=== PATIENT | female | born 1960 | race Caucasian/White ===

== ENCOUNTER 2023-10-18 09:14 | Emergency (ER) | payer OTHER, SELFPAY ==
[2023-10-18 09:18] VITALS: BP 157/90; PULSE 60; TEMP 36.8; O2SAT 96; BMI 29.3
--- NOTE | 2023-10-18 09:36 | XR_ITS ---
The [address] [address] Patient Name: SHARON COTTON MRN: [id number] date: 1960 Sex: F Assigned Patient Location: ER Current Patient Location: ER Accession/Order Number: [id number] Exam Date: 10/18/2023 09:30 Report Date: 10/18/2023 10:03 At the request of: RACHEL HWANG Procedure: XR foot RT min 3V PROCEDURE: XR foot RT min 3V HISTORY: trauma ; pain and bruising of lateral foot/5th toe; horse stepped on foot COMPARISON: None. FINDINGS: BONES:Comminuted fracture involving the head of the 5th middle phalanx and base of the 5th distal phalanx, with displaced fragments. Prior osteotomy and repair of first metatarsal with wire/pin remaining. Prosthetic replacement of proximal articular surface of first proximal phalanx. SOFT TISSUES:No visible soft tissue swelling. EFFUSION:None visible. OTHER: Negative. XR/XR foot RT min 3V IMPRESSION: 1. Comminuted, displaced fracture involving the contiguous sides of the 5th distal interphalangeal joint. 2. Prior surgical repair of first metatarsal and the metatarsophalangeal joint without evidence of hardware failure. Electronically authenticated by: DONTAE TANG Date: 10/18/2023 10:03
--- NOTE | 2023-10-18 10:16 | ED.LOWEXI1 ---
HPI HPI - Extremity Injury (Lower) General Chief Complaint: Extremity Injury, Lower Stated Complaint: LOWER EXTREMITY PAIN Time Seen by Provider: 10/18/23 09:17 Mode of arrival: walk-in Limitations: no limitations History of Present Illness HPI Narrative: Patient presents to ED complaining of right foot pain. She said last night Her foot accidentally got stepped on by her horse. She has bruising swelling and pain at the fourth and fifth metatarsal area. No other injury. She has had surgery on that foot in the past. No other complaints at this time Related Data Home Medications ?Medication ?Instructions ?Recorded ?Confirmed atorvastatin 20 mg tablet 20 mg PO DAILY 10/18/23 10/18/23 empagliflozin 25 mg tablet 25 mg PO DAILY 10/18/23 10/18/23 (Jardiance) empagliflozin 25 mg tablet 25 mg PO DAILY 10/18/23 10/18/23 (Jardiance) fluticasone propionate 50 2 spray intranasal DAILY PRN 10/18/23 10/18/23 mcg/actuation nasal allergy symptoms spray,suspension meloxicam 15 mg tablet 15 mg PO DAILY 10/18/23 10/18/23 mometasone-formoterol HFA 200 2 puff inhalation BID 10/18/23 10/18/23 mcg-5 mcg/actuation aerosol inhaler (Dulera) nystatin-triamcinolone 100,000 1 applic topical DAILY 10/18/23 10/18/23 unit/gram-0.1 % topical ointment olmesartan 20 mg tablet 20 mg PO DAILY 10/18/23 10/18/23 pregabalin 75 mg capsule 75 mg PO Q8H 10/18/23 10/18/23 tizanidine 2 mg capsule 2 mg PO BID PRN muscle spasticity 10/18/23 10/18/23 Allergies Allergy/AdvReac Type Severity Reaction Status Date / Time No Known Drug Allergies Allergy Verified 10/18/23 09:21 Opioid HPI Opioid Management Most Recent Pain and Opioid Data: Last Pain Scale 2 10/18/23 09:30 Review of Systems ROS Status of ROS 10 or more systems reviewed and unremarkable except as noted in history and below Exam Narrative Exam Narrative: General: alert, no acute distress Cardiovascular: regular rate and rhythm, normal peripheral perfusion. Respiratory: Lungs CTA, respirations non labored. Extremities: Ecchymosis swelling and tenderness at the fourth and fifth metatarsal area on the right. Normal pulses sensation and motor. Neurological: oriented x 4, LOC appropriate for age. Constitutional Vital Signs, click to edit/add: Last Vital Signs Temp 98.2 F 10/18/23 09:18 Pulse 60 10/18/23 09:18 Resp 18 10/18/23 09:18 BP 157/90 H 10/18/23 09:18 Pulse Ox 96 10/18/23 09:18 O2 Del Method Room Air 10/18/23 09:18 Course Vital Signs Vital signs: Vital Signs Temperature 98.2 F 10/18/23 09:18 Pulse Rate 60 10/18/23 09:18 Respiratory Rate 18 10/18/23 09:18 Blood Pressure 157/90 H 10/18/23 09:18 Pulse Oximetry 96 10/18/23 09:18 Oxygen Delivery Method Room Air 10/18/23 09:18 Temperature 98.2 F 10/18/23 09:18 Pulse Rate 60 10/18/23 09:18 Respiratory Rate 18 10/18/23 09:18 Blood Pressure 157/90 H 10/18/23 09:18 Pulse Oximetry 96 10/18/23 09:18 Oxygen Delivery Method Room Air 10/18/23 09:18 MDM - Extremity Injury (Lower) MDM Narrative Medical decision making narrative: Patient has a fracture of her foot on the right. She was placed in an Tk wrap and given a postop shoe. Follow-up with Ortho. Weight-bear as tolerated use crutches at home. Patient comfortable care plan for home Differential Diagnosis Differential diagnosis: Likely fracture of toe and other (Foot fracture foot sprain foot contusion) Imaging Data Chest x-ray: Radiologist's impression: ITS Impressions Foot X-Ray 10/18/23 09:36 IMPRESSION: 1. Comminuted, displaced fracture involving the contiguous sides of the 5th distal interphalangeal joint. 2. Prior surgical repair of first metatarsal and the metatarsophalangeal joint without evidence of hardware failure. Electronically authenticated by: JARAD TANG Date: 10/18/2023 10:03 Discharge Plan Discharge Stand Alone Forms: Work/School Release, Portal Instructions Chief Complaint: Extremity Injury, Lower Clinical Impression: Foot fracture, right Patient Disposition: Home, Self-Care Time of Disposition Decision: 10:12 Condition: Good Mode of Transportation: Private Vehicle Prescriptions / Home Meds: No Action atorvastatin 20 mg tablet 20 mg PO DAILY Jardiance 25 mg tablet 25 mg PO DAILY olmesartan 20 mg tablet 20 mg PO DAILY meloxicam 15 mg tablet 15 mg PO DAILY pregabalin 75 mg capsule 75 mg PO Q8H tizanidine 2 mg capsule 2 mg PO BID PRN (Reason: muscle spasticity) fluticasone propionate 50 mcg/actuation spray,suspension 2 spray intranasal DAILY PRN (Reason: allergy symptoms) Rx Instructions: administer into each nostril Dulera 200-5 mcg/actuation HFA aerosol inhaler 2 puff inhalation BID nystatin-triamcinolone 100,000-0.1 unit/gram-% ointment 1 applic TOPICAL DAILY Jardiance 25 mg tablet 25 mg PO DAILY Print Language: Greenlandic Instructions: Foot Fracture in Adults (ED) Referrals: SHERMAN CHAUDHARI [Primary Care Provider] - 1 week Jarad Robison MD [Physician] - 1 week
[2023-10-18 10:21] VITALS: BP 126/88; PULSE 8; O2SAT 98
== END 2023-10-18 10:22 | disposition home or self-care (01) ==
PROVIDERS: Emergency Provider Emergency Medicine; PCP Family Medicine
DX: S92.901A Unspecified fracture of right foot, initial encounter for closed fracture (principal); W55.12XA Struck by horse, initial encounter
CPT/HCPCS: 73630; 99283

== ENCOUNTER 2024-02-24 15:14 | Emergency (ER) | payer MEDICARE, SELFPAY ==
[2024-02-24] VITALS (15 sets, daily range): BP systolic 144–188; BP diastolic 79–91; PULSE 74; TEMP 36.6; O2SAT 92–98; BMI 27.5
--- NOTE | 2024-02-24 15:30 | CT_ITS ---
The [address] [address] Patient Name: SHARON COTTON MRN: [id number] date: 1960 Sex: F Assigned Patient Location: ER Current Patient Location: ER Accession/Order Number: [id number] Exam Date: 02/24/2024 16:20 Report Date: 02/24/2024 17:32 At the request of: MILAGRO MAYER Procedure: CT head/brain wo con EXAM: CT head/brain wo con HISTORY: Fall COMPARISON: None. TECHNIQUE: Multiple thin computed tomograms of the head were obtained, with sagittal and coronal reconstructions. Radiation reduction technique and algorithms were utilized during the study. FINDINGS: The ventricles are not enlarged, the lateral ventricles are mildly asymmetric but within normal variation, and the third ventricles in the midline. The sylvian fissures and cortical sulci are unremarkable. There is no evidence of an intracranial hemorrhage, mass lesion or apparent acute infarct. No abnormality is seen in the deep white matter. The cerebellum and visualized brainstem are intact. The visualized paranasal sinuses are clear. The middle ears are aerated. The mastoid sinuses are clear. There is no apparent acute skull fracture. There is focal soft tissue swelling in the subcutaneous soft tissues along the left side of the head, with evidence of a significant hematoma and possibly a laceration. CT/CT head/brain wo con IMPRESSION: There is no evidence of an intracranial hemorrhage, mass lesion or apparent acute infarct. The paranasal sinuses are clear as visualized. There is no apparent acute skull fracture. There is significant subcutaneous and superficial soft tissue swelling along the left side of the skull, with a significant hematoma and possibly a soft tissue laceration. Electronically authenticated by: LUCY AVALOS Date: 02/24/2024 17:32
--- NOTE | 2024-02-24 15:30 | CT_ITS ---
[address] [address] Patient Name: SHARON COTTON MRN: [id number] date: 1960 Sex: F Assigned Patient Location: ER Current Patient Location: ER Accession/Order Number: [id number] Exam Date: 02/24/2024 16:20 Report Date: 02/24/2024 18:01 At the request of: MILAGRO MAYER Procedure: CT cervical spine wo con CT CERVICAL SPINE WITHOUT IV CONTRAST. CLINICAL HISTORY: Fall COMPARISON: There are no prior studies available for comparison. TECHNIQUE: CT of the cervical spine without contrast. Orthogonal sagittal and coronal multiplanar reformatted images were created. . FINDINGS: BONY ALIGNMENT: There is normal cervical lordosis. No spondylolisthesis. VERTEBRAL BODY: No acute fracture of the cervical spine. There is mild multilevel degenerative spondylosis. CENTRAL CANAL/NEURAL FORAMINA: No high-grade central canal or neuroforaminal stenosis. SOFT TISSUE: No mass or inflammation. UPPER LUNGS: No acute findings. CT/CT cervical spine wo con IMPRESSION: No acute cervical spinal fracture. Electronically authenticated by: GARRETT DAVE Date: 02/24/2024 18:01
--- NOTE | 2024-02-24 15:30 | CT_ITS ---
[address] [address] Patient Name: SHARON COTTON MRN: [id number] date: 1960 Sex: F Assigned Patient Location: ER Current Patient Location: ER Accession/Order Number: [id number] Exam Date: 02/24/2024 16:20 Report Date: 02/24/2024 17:58 At the request of: MILAGRO MAYER Procedure: CT chest w con EXAM: CT chest w con, CT abdomen pelvis w con HISTORY: fall COMPARISON: None. TECHNIQUE: Axial CT imaging was performed through the chest, abdomen, and pelvis with intravenous contrast. Multiplanar reformats were performed. Dose reduction techniques were achieved by using automated exposure control and/or adjustment of mA and/or kV according to patient size and/or use of iterative reconstruction technique. CHEST FINDINGS: Lungs: No consolidation, or effusion. Small left-sided pneumothorax along the medial pleural and cardiophrenic angle. Airways: Patent. Mediastinum: No adenopathy. Aorta: No aneurysm. Cardiac: Normal size. No pericardial effusion. Pulmonary vasculature: Normal morphology. Bones: Nondisplaced fracture of the left anterolateral seventh ribs. Axilla: No adenopathy. Thyroid gland: No abnormality demonstrated on provided imaging. Soft tissues: Unremarkable. Additional findings: None. ABDOMEN AND PELVIS FINDINGS: GI upper: Unremarkable. Liver: Normal size and contour. Gallbladder: No significant abnormality. No cholelithiasis. Biliary system: No intra or extrahepatic biliary ductal dilatation. Spleen: Normal size. Pancreas: Unremarkable. Adrenal glands: Normal adrenal glands. Kidneys/ureters: Normal contours. No hydronephrosis. No nephrolithiasis or ureterolithiasis. Vessels: No aneurysm. Lymph Nodes: No lymphadenopathy. Small bowel: No wall thickening or dilatation. Colon: No wall thickening or dilatation. Appendix: Appendix is identified with normal appearance. Peritoneal cavity: No free fluid or pneumoperitoneum. Lower : Hysterectomy. Otherwise unremarkable. Bones: No acute bony abnormality. Degenerative changes of lumbar spine. Soft tissues: No acute finding. Additional findings: None. CT/CT chest w con IMPRESSION: Small left-sided pneumothorax along the medial pleural and cardiophrenic angle. Nondisplaced fracture of the left anterolateral seventh ribs. No acute traumatic injury of the abdomen and pelvis. Electronically authenticated by: SIMIN OCAMPO Date: 02/24/2024 17:58
--- NOTE | 2024-02-24 15:30 | CT_ITS ---
[address] [address] Patient Name: SHARON COTTON MRN: [id number] date: 1960 Sex: F Assigned Patient Location: ER Current Patient Location: Accession/Order Number: [id number] Exam Date: 02/24/2024 16:20 Report Date: 02/24/2024 17:58 At the request of: MILAGRO MAYER Procedure: CT abdomen pelvis w con EXAM: CT chest w con, CT abdomen pelvis w con HISTORY: fall COMPARISON: None. TECHNIQUE: Axial CT imaging was performed through the chest, abdomen, and pelvis with intravenous contrast. Multiplanar reformats were performed. Dose reduction techniques were achieved by using automated exposure control and/or adjustment of mA and/or kV according to patient size and/or use of iterative reconstruction technique. CHEST FINDINGS: Lungs: No consolidation, or effusion. Small left-sided pneumothorax along the medial pleural and cardiophrenic angle. Airways: Patent. Mediastinum: No adenopathy. Aorta: No aneurysm. Cardiac: Normal size. No pericardial effusion. Pulmonary vasculature: Normal morphology. Bones: Nondisplaced fracture of the left anterolateral seventh ribs. Axilla: No adenopathy. Thyroid gland: No abnormality demonstrated on provided imaging. Soft tissues: Unremarkable. Additional findings: None. ABDOMEN AND PELVIS FINDINGS: GI upper: Unremarkable. Liver: Normal size and contour. Gallbladder: No significant abnormality. No cholelithiasis. Biliary system: No intra or extrahepatic biliary ductal dilatation. Spleen: Normal size. Pancreas: Unremarkable. Adrenal glands: Normal adrenal glands. Kidneys/ureters: Normal contours. No hydronephrosis. No nephrolithiasis or ureterolithiasis. Vessels: No aneurysm. Lymph Nodes: No lymphadenopathy. Small bowel: No wall thickening or dilatation. Colon: No wall thickening or dilatation. Appendix: Appendix is identified with normal appearance. Peritoneal cavity: No free fluid or pneumoperitoneum. Lower : Hysterectomy. Otherwise unremarkable. Bones: No acute bony abnormality. Degenerative changes of lumbar spine. Soft tissues: No acute finding. Additional findings: None. CT/CT abdomen pelvis w con IMPRESSION: Small left-sided pneumothorax along the medial pleural and cardiophrenic angle. Nondisplaced fracture of the left anterolateral seventh ribs. No acute traumatic injury of the abdomen and pelvis. Electronically authenticated by: SIMIN OCAMPO Date: 02/24/2024 17:58
--- NOTE | 2024-02-24 15:33 | ED.GENADUL1 ---
HPI HPI - General Adult General Chief complaint: Head Injury Stated complaint: head injury- fell 10 feet Time Seen by Provider: 02/24/24 15:23 Source: patient Mode of arrival: walk-in Limitations: no limitations History of Present Illness HPI narrative: Patient is a 63-year-old female who presents to the emergency department with her for the evaluation of injuries after falling 10 feet off a hay mound. She states she fell onto her left side striking her head, she does not believe she had a loss of consciousness. She has some pain to the left side of the neck as well as to the left posterior chest. She has a history of multiple lumbar back surgeries, she does not currently have any back pain. She was able to ambulate after the injury. She is not anticoagulated. She denies visual changes, nausea or vomiting. She has no peripheral paresthesias. No anterior chest pain or abdominal pain. She denies any pain to the hips or lower extremities. She sustained superficial abrasions to the left side of the scalp, there is no active bleeding at time of arrival, unknown last tetanus. Related Data Home Medications ?Medication ?Instructions ?Recorded ?Confirmed atorvastatin 20 mg tablet 20 mg PO DAILY 10/18/23 02/24/24 empagliflozin 25 mg tablet 25 mg PO DAILY 10/18/23 10/18/23 (Jardiance) empagliflozin 25 mg tablet 25 mg PO DAILY 10/18/23 02/24/24 (Jardiance) fluticasone propionate 50 2 spray intranasal DAILY PRN 10/18/23 02/24/24 mcg/actuation nasal allergy symptoms spray,suspension meloxicam 15 mg tablet 15 mg PO DAILY 10/18/23 02/24/24 mometasone-formoterol HFA 200 2 puff inhalation BID 10/18/23 02/24/24 mcg-5 mcg/actuation aerosol inhaler (Dulera) nystatin-triamcinolone 100,000 1 applic topical DAILY 10/18/23 10/18/23 unit/gram-0.1 % topical ointment olmesartan 20 mg tablet 20 mg PO DAILY 10/18/23 02/24/24 pregabalin 75 mg capsule 75 mg PO Q8H 10/18/23 02/24/24 tizanidine 2 mg capsule 2 mg PO BID PRN muscle spasticity 10/18/23 02/24/24 Allergies Allergy/AdvReac Type Severity Reaction Status Date / Time No Known Drug Allergies Allergy Verified 02/24/24 15:27 Opioid HPI Opioid Management Most Recent Opioid Data: Last Pain Scale 2 10/18/23 09:30 10/18/23 Review of Systems ROS Constitutional Denies: fever or chills Eyes Denies: change in vision Ears, nose, mouth, and throat Reports: neck pain; Denies: throat pain Cardiovascular Denies: chest pain Respiratory Denies: shortness of breath or cough Gastrointestinal Denies: nausea or vomiting Musculoskeletal Reports: back pain and neck pain; Denies: extremity pain Integumentary/Breast Denies: rash Neurological Reports: headache; Denies: numbness in extremities or weakness in extremities Hematologic/Lymphatic Denies: easy bruising or easy bleeding PFSH PFS Social History Little interest or pleasure in doing things: not at all Feeling down, depressed, or hopeless: not at all Exam Narrative Exam Narrative: Gen.: Awake, alert, in no distress Head: Normocephalic, dried blood noted to the left parietal scalp with no obvious open lacerations, multiple small abrasions noted. No active bleeding. ENT: Moist mucous membranes, no injury to the nose or mouth, normal extraocular muscle motion. C-collar applied by nursing staff on arrival Respiratory: No respiratory distress, lungs clear bilaterally Cardio: Regular rate and rhythm Gastrointestinal: Abdomen is soft, nondistended and nontender to palpation, hips are nontender and pelvis is stable Back: No bony tenderness of the T-spine or L-spine; diffuse tenderness of the left posterior chest wall Extremities: Moves extremities equally, no injuries noted Psych: Normal mood and affect Neuro: No focal neuro deficit Skin: Warm, dry, intact Constitutional Vital Signs, click to edit/add: Last Vital Signs Temp 97.8 F 02/24/24 15:27 Pulse 74 02/24/24 15:27 Resp 18 02/24/24 15:27 BP 144/83 H 02/24/24 18:00 Pulse Ox 96 02/24/24 18:30 O2 Del Method Room Air 02/24/24 15:27 Course Vital Signs Vital signs: Vital Signs Temperature 97.8 F 02/24/24 15:27 Pulse Rate 74 02/24/24 15:27 Respiratory Rate 18 02/24/24 15:27 Blood Pressure 163/89 H 02/24/24 15:27 Pulse Oximetry 94 L 02/24/24 15:27 Oxygen Delivery Method Room Air 02/24/24 15:27 Temperature 97.8 F 02/24/24 15:27 Pulse Rate 74 02/24/24 15:27 Respiratory Rate 18 02/24/24 15:27 Blood Pressure 144/83 H 02/24/24 18:00 Pulse Oximetry 96 02/24/24 18:30 Oxygen Delivery Method Room Air 02/24/24 15:27 Medical Decision Making MDM Narrative Medical decision making narrative: Patient was kept flat and in a c-collar until her CT is resulted. CTs of the head, C-spine, chest abdomen and pelvis show the patient has a nondisplaced anterolateral left seventh rib fracture as well as a small pneumothorax in the medial aspect of the lung. She is hemodynamically stable in the emergency department. She was medicated with Dilaudid and Zofran. Laboratory studies reviewed and noted type and screen was obtained as well. Discussed a trauma transfer with the patient. Her her tetanus was updated. Explained to the patient and her at bedside by attending physician that she should be transferred to a higher level of care for management, she is in agreement with treatment at a trauma center, [facility] ER was contacted and the patient was accepted by Dr. Garsia. She is hemodynamically stable at this time. Additional pain medication given for comfort. Critical care time 35 minutes SHARED APC VISIT, PHYSICIAN ATTESTATION: [id number] I performed a substantive part of the MDM during the patient?s E/M visit. I personally evaluated and examined the patient. I personally made or approved the documented management plan and acknowledge its risk of complications. Medical Records Medical records reviewed: Yes I reviewed the patient's medical records Lab Data Lab results reviewed: Yes I reviewed the patient's lab results Labs: Lab Results 02/24/24 Range/Units 15:40 WBC 7.1 (4.0-11.0) 10^3/uL RBC 5.78 H (4.20-5.40) 10^6/uL Hgb 15.2 (12.0-16.0) g/dL Hct 47.0 (36.0-48.0) % MCV 81.3 (81.0-99.0) fL MCH 26.3 L (26.7-34.0) pg MCHC 32.3 (29.9-35.2) g/dL RDW 13.1 (11.0-15.0) % Plt Count 211 (150-450) 10^3/uL MPV 9.3 L (9.5-13.5) fL Neut % (Auto) 56.4 (43.0-75.0) % Lymph % (Auto) 32.7 (20.5-60.0) % Nolan % (Auto) 6.2 (1.7-12.0) % Eos % (Auto) 3.7 (0.9-7.0) % Baso % (Auto) 0.7 (0.2-2.0) % Neut # (Auto) 4.0 (1.4-6.5) 10^3/uL Lymph # (Auto) 2.3 (1.2-3.8) 10^3/uL Nolan # (Auto) 0.4 (0.3-0.8) 10^3/uL Eos # (Auto) 0.3 (0.0-0.7) 10^3/uL Baso # (Auto) 0.1 (0.0-0.1) 10^3/uL Abs Immat Gran (auto) 0.02 (0.00-0.03) 10^3/uL Imm/Tot Granulo (auto) 0.3 (0.0-0.5) % PT 10.4 (9.0-11.6) sec INR 0.98 Sodium 142 (136-145) mmol/L Potassium 3.8 (3.5-5.1) mmol/L Chloride 107 (98-107) mmol/L Carbon Dioxide 25.3 (21.0-32.0) mmol/L Anion Gap 13.5 BUN 21.0 H (7.0-18.0) mg/dL Creatinine 0.81 (0.55-1.02) mg/dL Est GFR ( Amer) >60 (>=60 mL/min/1.73m^2) Est GFR (Non-Af Amer) >60 (>=60 mL/min/1.73m^2) BUN/Creatinine Ratio 25.9 Glucose 122 H (74-106) mg/dL Lactate 1.1 (0.4-2.0) mmol/L Calcium 9.0 (8.5-10.1) mg/dL Total Bilirubin 1.5 H (0.2-1.0) mg/dL AST 19 (15-37) U/L ALT 27 (14-59) U/L Alkaline Phosphatase 119 H (46-116) U/L Total Protein 6.8 (6.4-8.2) g/dL Albumin 3.8 (3.4-5.0) g/dL Globulin 3.0 g/dL Albumin/Globulin Ratio 1.3 Blood Type O Positive Antibody Screen Negative Imaging Data CT scan - head: Attestation: I have reviewed the pertinent imaging results. Radiologist's impression: ITS Impressions Abdomen/Pelvis CT 02/24/24 15:30 IMPRESSION: Small left-sided pneumothorax along the medial pleural and cardiophrenic angle. Nondisplaced fracture of the left anterolateral seventh ribs. No acute traumatic injury of the abdomen and pelvis. Electronically authenticated by: SIMIN OCAMPO Date: 02/24/2024 17:[address] 02/24/24 15:30 IMPRESSION: No acute cervical spinal fracture. Electronically authenticated by: GARRETT DAVE Date: 02/24/2024 18:[address] 02/24/24 15:30 IMPRESSION: Small left-sided pneumothorax along the medial pleural and cardiophrenic angle. Nondisplaced fracture of the left anterolateral seventh ribs. No acute traumatic injury of the abdomen and pelvis. Electronically authenticated by: SIMIN OCAMPO Date: 02/24/2024 17:[address] 02/24/24 15:30 IMPRESSION: There is no evidence of an intracranial hemorrhage, mass lesion or apparent acute infarct. The paranasal sinuses are clear as visualized. There is no apparent acute skull fracture. There is significant subcutaneous and superficial soft tissue swelling along the left side of the skull, with a significant hematoma and possibly a soft tissue laceration. Electronically authenticated by: LUCY AVALOS Date: 02/24/2024 17:32 Discharge Plan Discharge Chief Complaint: Head Injury Clinical Impression: Fall, Closed head injury, Pneumothorax, Left rib fracture Patient Disposition: [facility] Time of Disposition Decision: 18:50 Discharge Location: [facility] Condition: Good Mode of Transportation: EMS Prescriptions / Home Meds: No Action atorvastatin 20 mg tablet 20 mg PO DAILY Jardiance 25 mg tablet 25 mg PO DAILY olmesartan 20 mg tablet 20 mg PO DAILY meloxicam 15 mg tablet 15 mg PO DAILY pregabalin 75 mg capsule 75 mg PO Q8H tizanidine 2 mg capsule 2 mg PO BID PRN (Reason: muscle spasticity) fluticasone propionate 50 mcg/actuation spray,suspension 2 spray intranasal DAILY PRN (Reason: allergy symptoms) Rx Instructions: administer into each nostril Dulera 200-5 mcg/actuation HFA aerosol inhaler 2 puff inhalation BID nystatin-triamcinolone 100,000-0.1 unit/gram-% ointment 1 applic TOPICAL DAILY Jardiance 25 mg tablet 25 mg PO DAILY Print Language: Mexican Referrals: SHERMAN CHAUDHARI [Primary Care Provider] - 1 week
[2024-02-24] MEDS: HYDROMORPHONE HCL 0.5 MG/0.5 ML SYRINGE IV (15:42)
--- NOTE | 2024-02-24 15:44 | PC.NURSE ---
[facility], landed on left side, abrasion to left side of head. C-collar placed on patient. Denies LOC.
[2024-02-24 15:46] LABS: Basophils Absolute Auto 0.1 10^3/uL (0.0-0.1); Basophils Percent Auto 0.7 % (0.2-2.0); Eosinophils Absolute Auto 0.3 10^3/uL (0.0-0.7); Eosinophils Percent Auto 3.7 % (0.9-7.0); Hemoglobin 15.2 g/dL (12.0-16.0); Immature Granulocytes Abs Auto 0.02 10^3/uL (0.00-0.03); Immature Granulocytes Pct Auto 0.3 % (0.0-0.5); Lymphocytes Absolute Auto 2.3 10^3/uL (1.2-3.8); Lymphocytes Percent Auto 32.7 % (20.5-60.0); Mean Corpuscular HGB Conc 32.3 g/dL (29.9-35.2); Mean Corpuscular Hemoglobin 26.3 pg (26.7-34.0); Mean Corpuscular Volume 81.3 fL (81.0-99.0); Mean Platelet Volume 9.3 fL (9.5-13.5); Monocytes Absolute Auto 0.4 10^3/uL (0.3-0.8); Monocytes Percent Auto 6.2 % (1.7-12.0); Neutrophils Percent Auto 56.4 % (43.0-75.0); Platelet Count 211 10^3/uL (150-450); Red Blood Count 5.78 10^6/uL (4.20-5.40); Red Cell Distribution Width 13.1 % (11.0-15.0); White Blood Count 7.1 10^3/uL (4.0-11.0)
[2024-02-24] MEDS: ONDANSETRON PF 4 MG/2 ML VIAL IV (15:48)
[2024-02-24] MEDS: ORPHENADRINE 60 MG/ 2 ML VIAL IV (15:48)
[2024-02-24] MEDS: ADACEL DIPH,PERTUSS(ACELL),TET VAC/PF 0.5 ML ADULT SYRINGE IM (15:49)
[2024-02-24 16:01] LABS: INR 0.98; Prothrombin Time 10.4 sec (9.0-11.6)
[2024-02-24 16:08] LABS: Lactate/Lactic Acid 1.1 mmol/L (0.4-2.0)
[2024-02-24 16:15] LABS: Alanine Aminotransferase 27 U/L (14-59); Albumin Globulin Ratio 1.3; Albumin Level 3.8 g/dL (3.4-5.0); Alkaline Phosphatase 119 U/L (46-116); Anion Gap 13.5; Aspartate Amino Transferase 19 U/L (15-37); BUN Creatinine Ratio 25.9; Bilirubin Total 1.5 mg/dL (0.2-1.0); Carbon Dioxide 25.3 mmol/L (21.0-32.0); Chloride 107 mmol/L (98-107); Estimated GFR (African America >60 (>=60 mL/min/1.73m^2); Estimated GFR (Non-African Ame >60 (>=60 mL/min/1.73m^2); Glucose 122 mg/dL (74-106); Potassium 3.8 mmol/L (3.5-5.1); Sodium 142 mmol/L (136-145); Total Protein 6.8 g/dL (6.4-8.2)
[2024-02-24] MEDS: HYDROMORPHONE HCL 1 MG/ML CARTRIDGE IVP (18:40)
== END 2024-02-24 19:50 | disposition short-term general hospital (02) ==
PROVIDERS: Physician Assistant; Emergency Provider Emergency Medicine; PCP Family Medicine
DX: S09.8XXA Other specified injuries of head, initial encounter (principal); S22.32XA Fracture of one rib, left side, initial encounter for closed fracture; S00.01XA Abrasion of scalp, initial encounter; W17.89XA Other fall from one level to another, initial encounter; J93.9 Pneumothorax, unspecified; Z23 Encounter for immunization
CPT/HCPCS: 36415; 70450; 71260; 72125; 74177; 80053; 83605; 85025; 85610; 86850; 86900; 86901; 90471; 90715; 96374; 96375; 96376; 99291; J1171; J2360; J2405; Q9967